=== PATIENT | male | born 1960 | race Caucasian/White ===

== ENCOUNTER 2018-06-23 06:33 | Inpatient (IN) | payer OTHER ==
[2018-06-23] MEDS ORDERED: BENZOIN TINCTURE SWABSTICK TP ONE (07:24)
[2018-06-23] MEDS ORDERED: BUPIVACAINE LIPOSOME/PF (EXPAREL) 266 MG/20 ML VIAL ONE ×2 (07:24→07:56)
[2018-06-23] MEDS ORDERED: THROMBIN (BOVINE) 5,000 UNIT VIAL TP ONE ×2 (07:25→09:05)
[2018-06-23] MEDS ORDERED: fentaNYL CITRATE 250 MCG/5 ML VIAL ONE (07:31)
[2018-06-23] MEDS ORDERED: PROPOFOL 20 ML ONE ×20 (07:31→13:12)
[2018-06-23] MEDS ORDERED: SUCCINYLCHOLINE CHLORIDE 200 MG/10 ML VIAL ONE (07:31)
[2018-06-23] MEDS ORDERED: DEXAMETHASONE SOD PHOSPHATE 4 MG/1 ML VIAL ONE ×2 (07:33→12:31)
[2018-06-23] MEDS ORDERED: ONDANSETRON 4 MG/2 ML VIAL ONE (07:33)
[2018-06-23] MEDS ORDERED: LIDOCAINE HCL/PF 2% SDV 5ML VIAL ONE (07:33)
[2018-06-23] MEDS ORDERED: VANCOMYCIN 1,000 MG VIAL (RESTRICTED TO ID ONLY) ONE (07:40)
[2018-06-23] MEDS ORDERED: VANCOMYCIN 1,000 MG VIAL (RESTRICTED TO ID ONLY) IVPB ONE (07:40)
[2018-06-23] MEDS ORDERED: BUPIVACAINE HCL/PF 0.5% (5MG/ML) 10 ML VIAL ONE (07:56)
[2018-06-23] MEDS ORDERED: MIDAZOLAM HCL 2 MG/2 ML SINGLE DOSE VIAL ONE ×2 (07:57)
[2018-06-23] MEDS ORDERED: MORPHINE 5 MG/10 ML AMP - FOR COMPOUNDING USE ONLY ONE (08:02)
[2018-06-23] MEDS ORDERED: ceFAZolin SODIUM 1 GM VIAL ONE ×3 (08:59→17:51)
[2018-06-23] MEDS ORDERED: ceFAZolin SODIUM 1 GM VIAL IVPB ONE ×2 (09:00→12:25)
[2018-06-23] MEDS ORDERED: morphine SULFATE/Preservative Free 0.5 MG/ML (1cc Syringe) EP ONE (09:00)
[2018-06-23] MEDS ORDERED: GELATIN, ABSORBABLE 12-7MM EACH SPONGE TP ONE (09:05)
[2018-06-23] MEDS ORDERED: HEPARIN NA (PORCINE) 5,000 UNITS/ML 1ML VIAL SQ ONE (09:06)
[2018-06-23] MEDS ORDERED: TRANEXAMIC ACID 1000 MG/10 ML VIAL ONE (09:08)
[2018-06-23] MEDS ORDERED: ROCURONIUM BROMIDE 50 MG/5 ML VIAL ONE ×2 (09:08→09:22)
[2018-06-23] MEDS ORDERED: NEOSTIGMINE METHYLSULFATE 0.5 MG/1 ML - 10 ML MDV ONE (09:54)
[2018-06-23] MEDS ORDERED: ONDANSETRON 4 MG/2 ML VIAL IVPUSH PRN ×2 (12:10→14:25)
[2018-06-23] MEDS ORDERED: oxyCODONE HCL 5 MG TABLET PO PRN ×3 (12:14→12:15)
--- NOTE | 2018-06-23 12:44 | PN ---
Progress Note (short form) - Note Progress Note: 57M s/p L4-S1 posterior decompression, L4-S1 posterior instrumented spinal fusion POD #0. -Admit to ICU post-op. -Pain control: per anaesthesia team; recommend FIELD CLERK. -DVT PPx: - Mechanical only: MEKA's, SCD's. -Incentive spirometry q15min. -PT/OT/Rehab, OOB. -WBAT B/L LE. -q4h B/L LE NV checks. -Post-op antibiotics x 3 doses. -NPO until flatus. -f/u AM labs. -f/u drain output. -d/c Gonsalves catheter when patient ambulating comfortably. -Care per ICU & medical hospitalist team. -Discharge planning: [facility]; call for appointment; . -Will follow. David Nye MD (Orthopaedic Surgery).
--- NOTE | 2018-06-23 12:51 | OP ---
Operative Note - Note: Operative Date: 06/23/18 Pre-Operative Diagnosis: 1. 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 2. L4-S1 spinal stenosis with neurogenic claudication Operation: 1. L4, L5, S1 laminectomies. 2. L4, L5, S1 facetectomies/ osteotomies. 3. Chicas-Lara osteotomies L4-L5. 4. Posterior instrumentation L4-S1. 5. Posterolateral arthrodesis L4-S1. 6. Posterior lumbar instrumented fusion (PLIF) L4-L5, L5-S1. 7. Bone autograft. 8. Bone allograft. 9. Bone marrow aspiration. 10. Stem cell autograft. 11. Intra- operative neural monitoring. 12. Intra-operative biplanar fluoroscopy. 13. Complex wound closure (15cm) Post-Operative Diagnosis: Same as Pre-op Surgeon: David Nye Feather Drying Machine Operator: Robe Nye Anesthesiologist/MINING CONSULTANT: Deisy Hoff Anesthesia: General, Spinal Specimens Removed: L4-L5, L5-S1 discs Estimated Blood Loss (mls): 875 Drains & Tubes with Location: 1 x superficial HemoVac Blood Volume Replaced (mls): 375 (Cell saver) Fluid Volume Replaced (mls): 2,000 (Crystalloid) Operative Report Dictated: Yes
[2018-06-23] MEDS: ACETAMINOPHEN 1000 MG/100 ML VIAL (NON FORMULARY) IVPB SCH ×3 (15:00→21:45)
--- NOTE | 2018-06-23 15:37 | CONSULT ---
Consultation: REQUESTING PROVIDER: Dr. Nye CONSULT REQUEST: We have been asked to medically evaluate this patient for ICU monitoring post-op. HISTORY OF PRESENT ILLNESS: 57 yo male with PMH HTN, HLD, Chronic lower back pain admitted to the ICU s/p L4 -S1 Laminectomy with PLIF. He states his pain is well controlled at this time however he is still quite groggy from anesthesia. He is limited in his ability to answer questioning at this time and dozed off multiple times during the interview. REVIEW OF SYSTEMS: Unable to obtain PHYSICAL EXAMINATION Vital Signs - 24 hr 06/23/18 06/23/18 06/23/18 06:59 07:00 07:02 Temperature 98.1 F 98.1 F Pulse Rate 68 68 Respiratory 20 20 Rate Blood Pressure 148/100 148/100 O2 Sat by Pulse 97 Oximetry (%) 06/23/18 06/23/18 07:30 14:24 Temperature 99 F Pulse Rate 78 103 H Respiratory 20 18 Rate Blood Pressure 141/98 113/57 L O2 Sat by Pulse 100 Oximetry (%) GEN: A&O, no acute distress HEENT: PERRL, constricted pupils, dry mucus membranes NECK: Supple HEART: RRR, no murmurs noted LUNGS: Sonorous breath sounds, otherwise clear to auscultation ABDOMEN: Soft, nontender, obese, hypoactive bowel sounds NEURO: Exam limited, however moving extremities well, no loss of sensation noted Laboratory Results - last 24 hr 06/23/18 06/23/18 06:43 07:54 Blood Type A POSITIVE A POSITIVE Antibody Screen Negative Active Medications Generic Name Dose Route Start Last Admin Trade Name Celestina PRN Reason Stop Dose Admin Acetaminophen 650 mg 06/23/18 12:15 Tylenol - PO Q6HPO JONN Acetaminophen 1,000 mg 06/23/18 14:30 06/23/18 15:00 Ofirmev Injection - IVPB 06/24/18 06:31 1,000 mg Q8H JONN Administration Amlodipine Besylate 5 mg 06/24/18 10:00 Norvasc - PO DAILY JONN Cefazolin Sodium/Dextrose 2 gm 06/23/18 19:00 Ancef 2 Gm Premixed Ivpb - IVPB 06/24/18 03:01 Q8H JONN Lactated Ringer's 1,000 mls @ 125 mls/hr 06/23/18 14:30 Lactated Ringers Solution IV ASDIR [facility] Non-Formulary Medication 40 mg 06/24/18 10:00 Pravastatin Sodium PO DAILY JONN Ondansetron HCl 4 mg 06/23/18 12:10 Zofran Injection IVPUSH Q4H PRN NAUSEA Ondansetron HCl 4 mg 06/23/18 14:25 Zofran Injection IVPUSH Q6H PRN NAUSEA AND/OR VOMITING Oxycodone HCl 10 mg 06/24/18 09:00 Oxycontin - PO BID@0900,2100 [facility] Oxycodone HCl 5 mg 06/24/18 09:00 Roxicodone - PO Q3H PRN PAIN LEVEL 1 - 3 Oxycodone HCl 10 mg 06/24/18 09:00 Roxicodone - PO Q3H PRN PAIN LEVEL 4 - 6 Oxycodone HCl 15 mg 06/24/18 12:19 Roxicodone - PO Q4H PRN PAIN LEVEL 7 - 10 ASSESSMENT/PLAN: 57 yo male with PMH HTN, HLD, Chronic lower back pain admitted to the ICU s/p L4 -S1 Laminectomy with PLIF. POST-OP -Pain control as per surgery/anesthesia, currently states well controlled -Incentive spirometry -D/C tyler when ambulatory -Ancef for 24 hours -Early ambulation -PT eval -Advance diet as tolerated -875 cc blood loss resported, 375 returned with CellSaver -2L crystalloid intraoperatively -LR @ 125 cc/hr until tolerating diet NEURO -Monitor for signs of neurovascular compromise CARDIO -HTN Continue home Norvasc 5 mg PO -HLD Continue home statin PULMONARY -Incentive Spirometry to prevent post-op atelectasis -Pt denies hx of sleep apnea however with likely sleep apnea, recommend sleep screen as outpatient GI -Monitor for bowel sounds, advance diet as tolerated PROPHYLAXIS -Mechanical prophylaxis only as per surgery FEN -LR @ 125 cc/hr -monitor and replete -NPO for now, advance as per surgery DISPOSITION Monitor in the ICU Thank you for this consultative opportunity. Visit type - Emergency Visit Emergency Visit: Yes ED Registration Date: 06/23/18 Care time: The patient presented to the Emergency Department on the above date and was hospitalized for further evaluation of their emergent condition. - New Patient This patient is new to me today: Yes Date on this admission: 06/23/18 - Critical Care Critical Care patient: Yes Total Critical Care Time (in minutes): 36 Critical Care Statement: The care of this patient involved high complexity decision making to prevent further life threatening deterioration of the patient 's condition and/or to evaluate & treat vital organ system(s) failure or risk of failure.
[2018-06-23] MEDS ORDERED: ceFAZolin 2 GRAM PREMIX BAG IVPB SCH (19:00)
[2018-06-23] MEDS: ACETAMINOPHEN 325 MG TABLET (FP) PO SCH (20:13)
[2018-06-23] MEDS: LACTATED RINGERS SOLUTION 1,000 ML IV SCH (20:14)
[2018-06-23] MEDS: CEFAZOLIN 2 GM/D5W 2 GM/50 ML ML IVPB SCH (20:15)
--- NOTE | 2018-06-23 20:35 | PN ---
Physical Exam: SUBJECTIVE: Patient seen and examined at bedside. s/p L4-S1 Laminectomy with PLIF POD #0. Patient reports lumbar pain PS 5/10 and is very hungry. Patient reports having flatulence, no BM, Gonsalves noted draining yellow urine. Patient denies numbness and tingling to extremities. Patient denies fever, chills, cough , SOB, CP, palpitations, AP, N/V/D. PMHx: HTN, HLD, Gastritis, BPH, Chronic Back Pain PSHx: Hernia Repair, L- leg Social Hx: Smoking: Tobacco, quit 18 yrs ago Alcohol: None Drugs: None OBJECTIVE: Vital Signs Period Temp Pulse Resp BP Sys/Stewart Pulse Ox Last 24 Hr 98.0 F-99 F 64-103 14-20 93-148/50-100 95-100 GENERAL: The patient is awake, alert, and fully oriented, in no acute distress. HEAD: Normal with no signs of trauma. EYES: PERRL, extraocular movements intact, sclera anicteric, conjunctiva clear. No ptosis. ENT: Ears normal, nares patent, oropharynx clear without exudates, moist mucous membranes. NECK: Trachea midline, full range of motion, supple. LUNGS: Breath sounds equal, clear to auscultation bilaterally, no wheezes, no crackles, no accessory muscle use. HEART: Regular rate and rhythm, S1, S2 without murmur, rub or gallop. ABDOMEN: Obese, soft, nontender, nondistended, normoactive bowel sounds, no guarding, no rebound, no hepatosplenomegaly, no masses. GENITOURINARY: Gonsalves Catheter draining yellow urine EXTREMITIES: 2+ pulses, warm, well-perfused, no edema. NEUROLOGICAL: Cranial nerves II through XII grossly intact. Normal speech, gait not observed. PSYCH: Normal mood, normal affect. SKIN: Warm, dry, normal turgor, no rashes or lesions noted Laboratory Results - last 24 hr 06/23/18 06/23/18 06:43 07:54 Blood Type A POSITIVE A POSITIVE Antibody Screen Negative Active Medications Generic Name Dose Route Start Last Admin Trade Name Freq PRN Reason Stop Dose Admin Acetaminophen 650 mg 06/23/18 12:15 Tylenol - PO Q6HPO JONN Acetaminophen 1,000 mg 06/23/18 14:30 06/23/18 15:00 Ofirmev Injection - IVPB 06/24/18 06:31 1,000 mg Q8H JONN Administration Amlodipine Besylate 5 mg 06/24/18 10:00 Norvasc - PO DAILY JONN Atorvastatin Calcium 20 mg 06/24/18 22:00 Lipitor - PO HS JONN Diphenhydramine HCl 12.5 mg 06/23/18 16:02 06/23/18 16:10 Benadryl Injection - IVPUSH 25 mg Q4H PRN Administration FOR ITCHING Lactated Ringer's 1,000 mls @ 125 mls/hr 06/23/18 14:30 Lactated Ringers Solution IV ASDIR JONN Cefazolin Sodium/Dextrose 2 gm in 50 mls @ 100 mls/hr 06/23/18 19:00 Ancef 2 Gm Premixed Ivpb - IVPB 06/24/18 03:29 Q8H [facility] Ondansetron HCl 4 mg 06/23/18 12:10 Zofran Injection IVPUSH Q4H PRN NAUSEA Ondansetron HCl 4 mg 06/23/18 14:25 Zofran Injection IVPUSH Q6H PRN NAUSEA AND/OR VOMITING Oxycodone HCl 10 mg 06/24/18 09:00 Oxycontin - PO BID@0900,2100 [facility] Oxycodone HCl 5 mg 06/24/18 09:00 Roxicodone - PO Q3H PRN PAIN LEVEL 1 - 3 Oxycodone HCl 10 mg 06/24/18 09:00 Roxicodone - PO Q3H PRN PAIN LEVEL 4 - 6 Oxycodone HCl 15 mg 06/24/18 12:19 Roxicodone - PO Q4H PRN PAIN LEVEL 7 - 10 ASSESSMENT/PLAN:
[2018-06-24] MEDS: ACETAMINOPHEN 325 MG TABLET (FP) PO SCH ×5 (00:07→23:35)
--- NOTE | 2018-06-24 00:54 | OP ---
DATE OF OPERATION: 06/23/2018 SURGEON: David Nye M.D. AUTHORIZER: Robe Nye M.D. PREOPERATIVE DIAGNOSIS: Lumbar spinal stenosis following failed previous L4-5, L5-S1 diskectomy with associated segmental instability and associated radiculopathy and functional incapacity. POSTOPERATIVE DIAGNOSIS: Lumbar spinal stenosis following failed previous L4-5, L5-S1 diskectomy with associated segmental instability and associated radiculopathy and functional incapacity. OPERATION PERFORMED: 1. Revision laminectomy L4 and L5 with associated undercutting fasciectomy. 2. Diskectomy L4-5, L5-S1. 3. Neurolysis left and right L4, L5 and S1 nerve roots freeing the nerves throughout the entire course in the vertebral canal up to the neural foramina at each level, that is L4, L5 extending down towards S1 ventral foramen. 4. Angiogram arthrodesis with autologous bone graft L4-5, L5-S1. 5. Insertion of interbody cage, L4-5 and L5-S1. 6. Pedicle screw instrumentation L4-5, S1. 7. Postoperative arthrodesis L4-5, S1. 8. Use of biplane fluoroscopy and intraoperative neuromonitoring. 9. Use of bone marrow aspirate concentrate as well as autologous bone graft. 10. Complex wound closure, 4-layer closure. ANESTHESIA: General. ANTIBIOTICS GIVEN: 2 g Kefzol, 1 g vancomycin, 1 g Kefzol given at the end of the procedure. OPERATION DETAILS: Patient was correctly identified, brought in operating room, placed supine on the Armando table, timeout was called. The wound was prepped and draped in the routine manner with Betadine scrub solution, wiped off with alcohol, DuraPrep applied. A window drape applied. All bony points were appropriately padded including the eyes and the table was set at 10 degrees head up (Trendelenburg). The old wound was recognized, this was extended proximally by an inch proximally and a half inch distally, dissection was taken subperiosteally to the tip of the spinous processes, exposing the spinous process on the left and right hand side. The lamina were identified. A lateral fluoroscopic x-ray with a Chantelle placed at L5-S1 verified our levels. It must be noted that this was extremely difficult, because it was completely adherent and stuck down in fibrous tissue as the appropriate approach was virtually impossible to get any instrumentation into the interspace. Accordingly, we resected the spinous process using Leksell rongeur, Kerrison upcuts to debulk the actual lamina and then using a sharp curet running around the border of the inferior aspect of each lamina, the fibrous tissue was broken free off the bone so the bone could be undercut appropriately. We used Leksell rongeurs, Kerrison up-cuts, and we also used osteotomes to implode the bone bed from lateral towards the vertebral canal because the nerve roots were so adherent and stuck downthat one could not gain entry to this area, and we had to start from normal tissue to abnormal tissue, and normal tissue happened to be bone. Once the bone had been broken into the canal it was gently carefully removed off the theca. We used scissors, curets as well as [place] to free each bony element from the actual thecal element. This was performed at both left and right hand side at the L4-5 level. At that point, the nerve roots were identified and each nerve was neurolysed appropriately, as it was stuck and adherent to the foramen. To seat a PLIF cage into each one would simply render the patient with long-term leg pain. We freed the nerves as best we could. They were completely freed both right and left-hand side. The theca was then retracted from the left to the right, and each disk dealt with in exactly the same way and the L4-5 and L5-S1 identified clearly. Epidural bone was using bipolar Bovie. Each disk was opened with a cruciate incision and shaving of each disk was to size 10. Each disk was then subjected to removal of disk material with pituitary rongeurs, serrated curets, as well as the shaver, and eventually we opted for a size 11 Fortilink cages at each level, that is at L4-5 and L5-S1. Prior to the insertion of each cage, the disk was packed with autologous bone. The cages were solidly seated and press fit into place. We chose a size 11 but shaved to size 10. Solid fixation, excellent position of the cage is noted. Once this had been performed, the pedicles of L4-5, S1 were identified using anatomic guidelines and lateral fluoroscopic x-ray as well. Each pedicle screw was drilled with a 4-5 drill bit. Each pedicle screw was then tested with intraoperative neural monitoring and found to be completely safe, that is well above 20 mA for each screw. Once this had been performed, the tulips of each screw were lined up appropriately, and the rods seated within the confines of the tulips, these were 65-mm rods bent to take on the contour of the lordosis. The cap screws were tightened into the tulips, solidly fixing the rods and the appliance torque device utilized to provide final locking. One crosslink applied with bone grafting. The postoperative arthrodesis was then performed. First 60 mL of marrow was harvested from the left posterior ilium. This then brought about aspiration of 60 mL of fluid, spun down for the CD4 cells. The bone graft that was harvested was mixed with this, packed into the intertransverse plane left and right hand side thus completing the instrumented postoperative arthrodesis. The wounds were thoroughly lavaged. The dura was completely intact. Closure muscle, this was a complex wound closure as follows. Muscle 1 Vicryl to close down the space, fascia 1 Vicryl, subcutaneous 1 and 2-0 Vicryl in 2 layers, skin 3-0 Monocryl with Steri-Strips. Drainage 1/8 inch which was inadvertently pulled at the end of the operation . Operation went well with no complications. Extremely difficult due to the stuck down dura and the principle to free each nerve root before each disk height was expanded, otherwise the adherence of the nerve root to the wall of the foramen as well as the vertebral canal would have been appropriately interfered with the relationship with us due to the stretch of the cage and resultant long-term leg pain . This is unlikely to occur. MD ROMERO Sim/[id number]
[2018-06-24] MEDS: CEFAZOLIN 2 GM/D5W 2 GM/50 ML ML IVPB SCH (04:44)
[2018-06-24] MEDS: ACETAMINOPHEN 1000 MG/100 ML VIAL (NON FORMULARY) IVPB SCH (05:35)
[2018-06-24 06:08] LABS: HEMATOCRIT 37.1 % (35.4-49); HEMOGLOBIN 11.6 GM/dL (11.7-16.9); MCH 25.7 pg (25.7-33.7); MCHC 31.3 g/dl (32.0-35.9); MEAN CELL VOLUME 81.9 fl (80-96); MEAN PLT VOLUME 9.7 fl (7.5-11.1); PLATELET COUNT 175 K/MM3 (134-434); RBC 4.52 M/mm3 (4.00-5.60); RDW 13.8 % (11.9-15.9); WHITE BLOOD COUNT 14.5 K/mm3 (4.0-10.0)
[2018-06-24 06:49] LABS: ANION GAP 6 MMOL/L (8-16); BLOOD UREA NITROGEN 18 mg/dL (7-18); CALCIUM 8.3 mg/dL (8.5-10.1); CHLORIDE 106 mmol/L (98-107); CO2 27 mmol/L (21-32); CREATININE 0.9 mg/dL (0.55-1.3); GLUCOSE,RANDOM 103 mg/dL (74-106); POTASSIUM 4.3 mmol/L (3.5-5.1); SODIUM 138 mmol/L (136-145)
--- NOTE | 2018-06-24 08:28 | PN ---
Physical Exam: SUBJECTIVE: Patient seen and examined this AM. He states he is doing well this morning. He states he is having significant pain in his back. Of note he is also requesting to get out of bed and walk around today. Discussed with patient that he can get out of bed today. OBJECTIVE: Vital Signs Period Temp Pulse Resp BP Sys/Stewart Pulse Ox Last 24 Hr 98.0 F-99 F 51-103 12-20 93-122/50-75 95-100 GEN: A&O, no acute distress HEENT: Moist mucus membranes NECK: Supple HEART: RRR, no murmurs noted LUNGS: CTA b/l, no wheezes or rhonchi noted ABDOMEN: Soft, nontender, obese, hypoactive bowel sounds NEURO: Moving all extremities with full strength and ROM and minimal pain, neurosensory in tact Laboratory Results - last 24 hr 06/23/18 06/24/18 06/24/18 07:54 05:30 05:30 WBC 14.5 H RBC 4.52 Hgb 11.6 L Hct 37.1 MCV 81.9 MCH 25.7 MCHC 31.3 L RDW 13.8 Plt Count 175 MPV 9.7 Sodium 138 Potassium 4.3 Chloride 106 Carbon Dioxide 27 Anion Gap 6 L BUN 18 Creatinine 0.9 Creat Clearance w eGFR 87.29 Random Glucose 103 Calcium 8.3 L Blood Type A POSITIVE Active Medications Generic Name Dose Route Start Last Admin Trade Name Freq PRN Reason Stop Dose Admin Acetaminophen 650 mg 06/23/18 12:15 06/24/18 05:24 Tylenol - PO Not Given Q6HPO JONN Amlodipine Besylate 5 mg 06/24/18 10:00 Norvasc - PO DAILY JONN Atorvastatin Calcium 20 mg 06/24/18 22:00 Lipitor - PO HS JONN Diphenhydramine HCl 12.5 mg 06/23/18 16:02 06/24/18 05:00 Benadryl Injection - IVPUSH 12.5 mg Q4H PRN Administration FOR ITCHING Lactated Ringer's 1,000 mls @ 125 mls/hr 06/23/18 14:30 06/23/18 20:14 Lactated Ringers Solution IV 125 mls/hr ASDIR JONN Administration Ondansetron HCl 4 mg 06/23/18 12:10 Zofran Injection IVPUSH Q4H PRN NAUSEA Ondansetron HCl 4 mg 06/23/18 14:25 Zofran Injection IVPUSH Q6H PRN NAUSEA AND/OR VOMITING Oxycodone HCl 10 mg 06/24/18 09:00 Oxycontin - PO BID@0900,2100 JONN Oxycodone HCl 5 mg 06/24/18 09:00 Roxicodone - PO Q3H PRN PAIN LEVEL 1 - 3 Oxycodone HCl 10 mg 06/24/18 09:00 Roxicodone - PO Q3H PRN PAIN LEVEL 4 - 6 Oxycodone HCl 15 mg 06/24/18 12:19 Roxicodone - PO Q4H PRN PAIN LEVEL 7 - 10 ASSESSMENT/PLAN: 57 yo male with PMH HTN, HLD, Chronic lower back pain admitted to the ICU s/p L4 -S1 Laminectomy with PLIF. POST-OP -Pain control as per surgery/anesthesia, currently states well controlled -Incentive spirometry -D/C tyler -Ancef for 24 hours -Early ambulation -PT eval -Advance diet as tolerated -875 cc blood loss resported, 375 returned with CellSaver -2L crystalloid intraoperatively NEURO -Monitor for signs of neurovascular compromise CARDIO -HTN Continue home Norvasc 5 mg PO -HLD Continue home statin PULMONARY -Incentive Spirometry to prevent post-op atelectasis -Pt denies hx of sleep apnea however with likely sleep apnea, recommend sleep screen as outpatient GI -Monitor for bowel sounds, advance diet as tolerated PROPHYLAXIS -Mechanical prophylaxis only as per surgery FEN -none -monitor and replete -Tolerated clears, will advance as tolerated DISPOSITION Stable for transfer to floors Visit type - Emergency Visit Emergency Visit: No - New Patient This patient is new to me today: No - Critical Care Critical Care patient: No
[2018-06-24] MEDS: oxyCODONE HCL 10 MG SUSTAINED ACTING TABLET PO SCH ×2 (08:32→21:35)
[2018-06-24] MEDS ORDERED: oxyCODONE HCL 5 MG TABLET PO PRN ×2 (09:00→12:19)
[2018-06-24] MEDS: amLODIPine BESYLATE 5 MG TABLET (FP) PO SCH (10:15)
[2018-06-24] MEDS: oxyCODONE HCL 5 MG TABLET PO PRN ×2 (10:17→14:45)
[2018-06-24] MEDS: LACTATED RINGERS SOLUTION 1,000 ML IV SCH ×2 (10:31→17:50)
--- NOTE | 2018-06-24 10:42 | PN ---
Progress Note (short form) - Note Progress Note: 57M POD1 s/p L4-5 posterior lumbar interbody fusion under GA-ETT with intrathecal duramorph and exparel TLIPs for post operative pain relief. Pt c/o pain, states that it is controlled at this time. AVSS. Continue current regimen of oral narcotics with tylenol. Duramorph likely worn off or wearing off at this time.
--- NOTE | 2018-06-24 13:42 | PN ---
Teaching Attending Note Name of Resident: Jeovanny Purvis ATTENDING PHYSICIAN STATEMENT I saw and evaluated the patient. I reviewed the resident's note and discussed the case with the resident. I agree with the resident's findings and plan as documented. SUBJECTIVE: Pt seen and examined in the ICU. c/o pain. No nausea or vomiting. No fevers or chills. Wants to get OOB. OBJECTIVE: Vital Signs Period Temp Pulse Resp BP Sys/Stewart Pulse Ox Last 24 Hr 98.0 F-99 F 51-103 12-21 93-123/50-75 95-100 Intake & Output 06/21/18 06/22/18 06/23/18 06/24/18 23:59 23:59 23:59 23:59 Intake Total 3525 2100 Output Total 1875 1600 Balance 1650 500 Weight 107.4 kg Gen: NAD at rest Heart: RRR Lung: decreased breath sounds at the bases Abd: soft, nontender Ext: no edema CBC, BMP 06/24/18 05:30 06/24/18 05:30 Active Medications Acetaminophen (Tylenol -) 650 mg PO Q6HPO [facility] Last Admin: 06/24/18 12:28 Dose: 650 mg Amlodipine Besylate (Norvasc -) 5 mg PO DAILY [facility] Last Admin: 06/24/18 10:15 Dose: 5 mg Atorvastatin Calcium (Lipitor -) 20 mg PO [facility] Diphenhydramine HCl (Benadryl Injection -) 12.5 mg IVPUSH Q4H PRN PRN Reason: FOR ITCHING Last Admin: 06/24/18 12:36 Dose: 12.5 mg Lactated Ringer's (Lactated Ringers Solution) 1,000 mls @ 125 mls/hr IV ASDIR [facility] Last Admin: 06/24/18 10:31 Dose: 125 mls/hr Ondansetron HCl (Zofran Injection) 4 mg IVPUSH Q4H PRN PRN Reason: NAUSEA Ondansetron HCl (Zofran Injection) 4 mg IVPUSH Q6H PRN PRN Reason: NAUSEA AND/OR VOMITING Oxycodone HCl (Oxycontin -) 10 mg PO BID@0900,2100 [facility] Last Admin: 06/24/18 08:32 Dose: 10 mg Oxycodone HCl (Roxicodone -) 5 mg PO Q3H PRN PRN Reason: PAIN LEVEL 1 - 3 Oxycodone HCl (Roxicodone -) 10 mg PO Q3H PRN PRN Reason: PAIN LEVEL 4 - 6 Last Admin: 06/24/18 10:17 Dose: 10 mg Oxycodone HCl (Roxicodone -) 15 mg PO Q4H PRN PRN Reason: PAIN LEVEL 7 - 10 ASSESSMENT AND PLAN: Lumbar Spinal Stenosis with Radiculopathy and Claudication s/p L4-S1 Laminectomies/Posterior Instrumentation/PLIF HTN Hyperlipidemia - pain control - incentive spirometry - bowel regimen - rehab/PT - DVT prophylaxis - can monitor on floor
--- NOTE | 2018-06-24 16:57 | PN ---
Progress Note (short form) - Note Progress Note: POD 1, s/p L4, L5, S1 laminectomies, (PLIF) L4-L5, L5-S1 CTSP by RN/primary team for saturated dressing. Per Rn, pts dressing has been oozing throughout the day requiring multiple bed/ gown changes. Pt laying in bed in nad, reports pain controlled. Denies dizziness/ lightheadedness. Dressing saturated completely (serosanguinous drainage), removed, incision intact, no drainage expressed. Proximal ostium with staple intact also dry (HV removed incidentally). No erythema. Pt noted to have two superficial skin tears (approx 2x2cm and 1x1cm) at border of prior Iodoform dressing. No erythema or drainage. Incision covered with 4x4 gauze/tegaderm. Recommend Xerform to skin tears d/w attending Dr Robe Nye
[2018-06-24] MEDS: BACITRACIN 15 GM TUBE TOPICAL OINTMENT TP SCH (17:52)
--- NOTE | 2018-06-24 20:21 | PN ---
Physical Exam: SUBJECTIVE: Patient seen and examined -s/p Lumbar spine laminectomies -pt with surgical site ooze throughout the course of the day -site evaluated by surgical PA -OOB to chair -flatus passed, diet advanced OBJECTIVE: Vital Signs Period Temp Pulse Resp BP Sys/Stewart Pulse Ox Last 24 Hr 98.1 F-98.7 F 51-83 12-21 101-129/59-75 96-100 GENERAL: The patient is awake, alert, and fully oriented, in no acute distress. HEAD: Normal with no signs of trauma. EYES: PERRL, sclera anicteric, conjunctiva clear. ENT: nares patent, oropharynx clear without exudates, moist mucous membranes. NECK: Trachea midline, full range of motion, supple. LUNGS: Breath sounds equal, clear to auscultation bilaterally, no wheezes, no crackles, no accessory muscle use. HEART: Regular rate and rhythm, S1, S2 without murmur, rub or gallop. ABDOMEN: Soft, nontender, nondistended, normoactive bowel sounds, no guarding, EXTREMITIES: 2+ pulses, warm, well-perfused, no edema. NEUROLOGICAL: Cranial nerves II through XII grossly intact. Normal speech, gait not observed. PSYCH: Normal mood, normal affect. SKIN: Warm, dry, normal turgor, no rashes or lesions noted. Lumbar dressing mostly soaked. Laboratory Results - last 24 hr 06/24/18 06/24/18 05:30 05:30 WBC 14.5 H RBC 4.52 Hgb 11.6 L Hct 37.1 MCV 81.9 MCH 25.7 MCHC 31.3 L RDW 13.8 Plt Count 175 MPV 9.7 Sodium 138 Potassium 4.3 Chloride 106 Carbon Dioxide 27 Anion Gap 6 L BUN 18 Creatinine 0.9 Creat Clearance w eGFR 87.29 Random Glucose 103 Calcium 8.3 L Active Medications Generic Name Dose Route Start Last Admin Trade Name Freq PRN Reason Stop Dose Admin Acetaminophen 650 mg 06/23/18 12:15 06/24/18 17:50 Tylenol - PO 650 mg Q6HPO JONN Administration Amlodipine Besylate 5 mg 06/24/18 10:00 06/24/18 10:15 Norvasc - PO 5 mg DAILY JONN Administration Atorvastatin Calcium 20 mg 06/24/18 22:00 Lipitor - PO HS JONN Bacitracin 1 applic 06/24/18 16:45 06/24/18 17:52 Bacitracin - TP 1 applic DAILY JONN Administration Diphenhydramine HCl 12.5 mg 06/23/18 16:02 06/24/18 12:36 Benadryl Injection - IVPUSH 12.5 mg Q4H PRN Administration FOR ITCHING Lactated Ringer's 1,000 mls @ 125 mls/hr 06/23/18 14:30 06/24/18 17:50 Lactated Ringers Solution IV 125 mls/hr ASDIR JONN Administration Ondansetron HCl 4 mg 06/23/18 12:10 Zofran Injection IVPUSH Q4H PRN NAUSEA Ondansetron HCl 4 mg 06/23/18 14:25 Zofran Injection IVPUSH Q6H PRN NAUSEA AND/OR VOMITING Oxycodone HCl 10 mg 06/24/18 09:00 06/24/18 08:32 Oxycontin - PO 10 mg BID@0900,2100 JONN Administration Oxycodone HCl 5 mg 06/24/18 09:00 Roxicodone - PO Q3H PRN PAIN LEVEL 1 - 3 Oxycodone HCl 10 mg 06/24/18 09:00 06/24/18 14:45 Roxicodone - PO 10 mg Q3H PRN Administration PAIN LEVEL 4 - 6 Oxycodone HCl 15 mg 06/24/18 12:19 Roxicodone - PO Q4H PRN PAIN LEVEL 7 - 10 ASSESSMENT/PLAN: 57 year old M with L4-L5, 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 Problem List - Problems (1) S/P lumbar laminectomy Assessment/Plan: pain control with oxycodone, oxycontin and APAP OOB to chair Ambulate PT daily can transfer to same day surgery center floor tomorrow Code(s): Z98.890 - OTHER SPECIFIED POSTPROCEDURAL STATES (2) HTN (hypertension) Assessment/Plan: norvasc 5mg daily cardiac diet Code(s): I10 - ESSENTIAL (PRIMARY) HYPERTENSION (3) Hyperlipidemia Assessment/Plan: continue lipitor 20mg qhs cardiac diet Code(s): E78.5 - HYPERLIPIDEMIA, UNSPECIFIED (4) Prophylactic measure Assessment/Plan: bowel regimen with senna and colace IC Code(s): Z29.9 - ENCOUNTER FOR PROPHYLACTIC MEASURES, UNSPECIFIED Visit type - Emergency Visit Emergency Visit: No - New Patient This patient is new to me today: Yes Date on this admission: 06/24/18 - Critical Care Critical Care patient: Yes Total Critical Care Time (in minutes): 45 Critical Care Statement: The care of this patient involved high complexity decision making to prevent further life threatening deterioration of the patient 's condition and/or to evaluate & treat vital organ system(s) failure or risk of failure. - Discharge Referral Referred to [facility] Med P.C.: No
[2018-06-24] MEDS ORDERED: SENNOSIDES 8.6MG TABLET (FP) PO PRN (20:26)
[2018-06-24] MEDS: ATORVASTATIN CA 20 MG TABLET (FP) PO SCH (21:35)
[2018-06-24] MEDS: POLYETHYLENE GLYCOL 3350 119 GM BTL PO PRN (21:36)
[2018-06-24] MEDS ORDERED: PT OWN MED DRAWER 7, Y5N ONE (21:47)
[2018-06-25] MEDS: oxyCODONE HCL 5 MG TABLET PO PRN (05:24)
[2018-06-25] MEDS: DOCUSATE SODIUM 100 MG CAPSULE (FP) PO PRN ×2 (05:25→17:01)
[2018-06-25] MEDS: ACETAMINOPHEN 325 MG TABLET (FP) PO SCH ×3 (05:25→17:00)
[2018-06-25 06:36] LABS: HEMATOCRIT 34.5 % (35.4-49); MCHC 31.8 g/dl (32.0-35.9); MEAN CELL VOLUME 81.9 fl (80-96); MEAN PLT VOLUME 9.7 fl (7.5-11.1); PLATELET COUNT 153 K/MM3 (134-434); RBC 4.21 M/mm3 (4.00-5.60); WHITE BLOOD COUNT 12.9 K/mm3 (4.0-10.0)
[2018-06-25 07:06] LABS: ALBUMIN 2.9 g/dl (3.4-5.0); ALK PHOS 45 U/L (45-117); ANION GAP 3 MMOL/L (8-16); BILIRUBIN,TOTAL 0.3 mg/dL (0.2-1); BLOOD UREA NITROGEN 15 mg/dL (7-18); CALCIUM 8.5 mg/dL (8.5-10.1); CHLORIDE 105 mmol/L (98-107); CO2 33 mmol/L (21-32); CREATININE 0.7 mg/dL (0.55-1.3); GLUCOSE,RANDOM 99 mg/dL (74-106); POTASSIUM 3.9 mmol/L (3.5-5.1); SGOT/AST 59 U/L (15-37); SGPT/ALT 25 U/L (13-61); SODIUM 140 mmol/L (136-145); TOT PROT 5.4 g/dl (6.4-8.2)
--- NOTE | 2018-06-25 07:55 | PN ---
Physical Exam: SUBJECTIVE: Patient seen and examined this AM. He is still having some pain today but states that it is controlled. He denies any bowel movements in the last 4 days, however has had flatus and has tolerated his diet well. OBJECTIVE: Vital Signs Period Temp Pulse Resp BP Sys/Stewart Pulse Ox Last 24 Hr 98.1 F-98.9 F 63-86 12-26 108-129/57-75 96-100 GEN: A&O, no acute distress HEENT: Moist mucus membranes NECK: Supple HEART: RRR, no murmurs noted LUNGS: CTA b/l, no wheezes or rhonchi noted ABDOMEN: Soft, nontender, obese, hypoactive bowel sounds BACK: Dressing clean and in tact NEURO: Moving all extremities with full strength and ROM and minimal pain, neurosensory in tact Laboratory Results - last 24 hr 06/25/18 06/25/18 05:30 05:30 WBC 12.9 H RBC 4.21 Hgb 11.0 L Hct 34.5 L MCV 81.9 MCH 26.0 MCHC 31.8 L RDW 14.0 Plt Count 153 MPV 9.7 Sodium 140 Potassium 3.9 Chloride 105 Carbon Dioxide 33 H Anion Gap 3 L BUN 15 Creatinine 0.7 Creat Clearance w eGFR 116.66 Random Glucose 99 Calcium 8.5 Total Bilirubin 0.3 AST 59 H ALT 25 Alkaline Phosphatase 45 Total Protein 5.4 L Albumin 2.9 L Active Medications Generic Name Dose Route Start Last Admin Trade Name Freq PRN Reason Stop Dose Admin Acetaminophen 650 mg 06/23/18 12:15 06/25/18 05:25 Tylenol - PO 650 mg Q6HPO JONN Administration Amlodipine Besylate 5 mg 06/24/18 10:00 06/24/18 10:15 Norvasc - PO 5 mg DAILY JONN Administration Atorvastatin Calcium 20 mg 06/24/18 22:00 06/24/18 21:35 Lipitor - PO 20 mg HS JONN Administration Bacitracin 1 applic 06/24/18 16:45 06/24/18 17:52 Bacitracin - TP 1 applic DAILY JONN Administration Diphenhydramine HCl 12.5 mg 06/23/18 16:02 06/24/18 12:36 Benadryl Injection - IVPUSH 12.5 mg Q4H PRN Administration FOR ITCHING Docusate Sodium 100 mg 06/24/18 20:26 06/25/18 05:25 Colace - PO 100 mg Q8H PRN Administration CONSTIPATION Ondansetron HCl 4 mg 06/23/18 12:10 Zofran Injection IVPUSH Q4H PRN NAUSEA Ondansetron HCl 4 mg 06/23/18 14:25 Zofran Injection IVPUSH Q6H PRN NAUSEA AND/OR VOMITING Oxycodone HCl 10 mg 06/24/18 09:00 06/24/18 21:35 Oxycontin - PO 10 mg BID@0900,2100 JONN Administration Oxycodone HCl 5 mg 06/24/18 09:00 Roxicodone - PO Q3H PRN PAIN LEVEL 1 - 3 Oxycodone HCl 10 mg 06/24/18 09:00 06/25/18 05:24 Roxicodone - PO 10 mg Q3H PRN Administration PAIN LEVEL 4 - 6 Oxycodone HCl 15 mg 06/24/18 12:19 Roxicodone - PO Q4H PRN PAIN LEVEL 7 - 10 Polyethylene Glycol 17 gm 06/24/18 20:26 06/24/18 21:36 Miralax (For Daily Use) - PO 17 grams DAILY PRN Administration CONSTIPATION Senna 2 tab 06/24/18 20:26 Senna - PO HS PRN CONSTIPATION ASSESSMENT/PLAN: 57 yo male with PMH HTN, HLD, Chronic lower back pain admitted to the ICU s/p L4 -S1 Laminectomy with PLIF. POST-OP -Pain control as per surgery/anesthesia, currently states well controlled -Incentive spirometry -Early ambulation -Continue working with PT -Tolerating diet -875 cc blood loss resported, 375 returned with CellSaver -Stable for transfer to floors vs d/c pending surgery recommendation NEURO -No neurological deficits or concerns post op CARDIO -HTN Continue home Norvasc 5 mg PO -HLD Continue home statin PULMONARY -Incentive Spirometry to prevent post-op atelectasis -Pt denies hx of sleep apnea however with likely sleep apnea, recommend sleep screen as outpatient GI -Tolerating diet well PROPHYLAXIS -Mechanical prophylaxis only as per surgery FEN -none -monitor and replete -Na controlled diet DISPOSITION Stable for transfer to floors Visit type - Emergency Visit Emergency Visit: No - New Patient This patient is new to me today: No - Critical Care Critical Care patient: No
[2018-06-25] MEDS: oxyCODONE HCL 10 MG SUSTAINED ACTING TABLET PO SCH ×2 (09:33→21:29)
[2018-06-25] MEDS: BACITRACIN 15 GM TUBE TOPICAL OINTMENT TP SCH (09:34)
[2018-06-25] MEDS: amLODIPine BESYLATE 5 MG TABLET (FP) PO SCH (09:35)
[2018-06-25] MEDS: POLYETHYLENE GLYCOL 3350 119 GM BTL PO PRN ×2 (09:36→21:35)
--- NOTE | 2018-06-25 10:20 | PN ---
Physical Exam: SUBJECTIVE: Patient seen and examined. denies shortness of breath, denies chest pain. OBJECTIVE: equipment monitor phototypesetting: nsr 83, 130/74, tolerating room air with stable oxygen saturations Vital Signs Period Temp Pulse Resp BP Sys/Stewart Pulse Ox Last 24 Hr 98.1 F-98.9 F 65-86 14-26 108-131/57-75 96-96 GENERAL: The patient is awake, alert, and fully oriented, in no acute distress. sitting in chair/pain controlled. HEAD: Normal with no signs of trauma. EYES: PERRL, sclera anicteric, conjunctiva clear. ENT: nares patent, oropharynx clear without exudates, moist mucous membranes. NECK: Trachea midline, full range of motion, supple. LUNGS: Breath sounds equal, clear to auscultation bilaterally, no wheezes, no crackles, no accessory muscle use. HEART: Regular rate and rhythm, ABDOMEN: Soft, nontender, nondistended, normoactive bowel sounds, no guarding, EXTREMITIES: 2+ pulses, warm, well-perfused, no edema. NEUROLOGICAL: Normal speech, gait not observed. PSYCH: Normal mood, normal affect. SKIN: surgical dressing dry, minimal sero sang drainage. Laboratory Results - last 24 hr 06/25/18 06/25/18 05:30 05:30 WBC 12.9 H RBC 4.21 Hgb 11.0 L Hct 34.5 L MCV 81.9 MCH 26.0 MCHC 31.8 L RDW 14.0 Plt Count 153 MPV 9.7 Sodium 140 Potassium 3.9 Chloride 105 Carbon Dioxide 33 H Anion Gap 3 L BUN 15 Creatinine 0.7 Creat Clearance w eGFR 116.66 Random Glucose 99 Calcium 8.5 Total Bilirubin 0.3 AST 59 H ALT 25 Alkaline Phosphatase 45 Total Protein 5.4 L Albumin 2.9 L Active Medications Generic Name Dose Route Start Last Admin Trade Name Freq PRN Reason Stop Dose Admin Acetaminophen 650 mg 06/23/18 12:15 06/25/18 05:25 Tylenol - PO 650 mg Q6HPO JONN Administration Amlodipine Besylate 5 mg 06/24/18 10:00 06/25/18 09:35 Norvasc - PO 5 mg DAILY JONN Administration Atorvastatin Calcium 20 mg 06/24/18 22:00 06/24/18 21:35 Lipitor - PO 20 mg HS JONN Administration Bacitracin 1 applic 06/24/18 16:45 06/25/18 09:34 Bacitracin - TP 1 applic DAILY JONN Administration Diphenhydramine HCl 12.5 mg 06/23/18 16:02 06/24/18 12:36 Benadryl Injection - IVPUSH 12.5 mg Q4H PRN Administration FOR ITCHING Docusate Sodium 100 mg 06/24/18 20:26 06/25/18 05:25 Colace - PO 100 mg Q8H PRN Administration CONSTIPATION Ondansetron HCl 4 mg 06/23/18 12:10 Zofran Injection IVPUSH Q4H PRN NAUSEA Ondansetron HCl 4 mg 06/23/18 14:25 Zofran Injection IVPUSH Q6H PRN NAUSEA AND/OR VOMITING Oxycodone HCl 10 mg 06/24/18 09:00 06/25/18 09:33 Oxycontin - PO 10 mg BID@0900,2100 JONN Administration Oxycodone HCl 5 mg 06/24/18 09:00 Roxicodone - PO Q3H PRN PAIN LEVEL 1 - 3 Oxycodone HCl 10 mg 06/24/18 09:00 06/25/18 05:24 Roxicodone - PO 10 mg Q3H PRN Administration PAIN LEVEL 4 - 6 Oxycodone HCl 15 mg 06/24/18 12:19 Roxicodone - PO Q4H PRN PAIN LEVEL 7 - 10 Polyethylene Glycol 17 gm 06/24/18 20:26 06/25/18 09:36 Miralax (For Daily Use) - PO 17 grams DAILY PRN Administration CONSTIPATION Senna 2 tab 06/24/18 20:26 Senna - PO HS PRN CONSTIPATION ASSESSMENT/PLAN: Patient is a 57 year old male L4-L5, 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 Nye. His other past medical history includes hypertension, hyperlipidemia, gastritis, BPH, chronic back pain. Back surgery Monitor wound, change dressing per surgery physical therapy pain management, bowel regimen, incentive spirometer Hypertension. On Norvasc 5mg daily Hyperlipidemia On statin therapy fen tolerating PO monitor daily electrolytes diet per surgery prophy scds physical therapy Visit type - Emergency Visit Emergency Visit: Yes ED Registration Date: 06/23/18 Care time: The patient presented to the Emergency Department on the above date and was hospitalized for further evaluation of their emergent condition. - New Patient This patient is new to me today: No - Critical Care Critical Care patient: No - Discharge Referral Referred to [facility] Med [facility] No
[2018-06-25 12:25] VITALS: BMI 36.9
--- NOTE | 2018-06-25 12:42 | PN ---
Teaching Attending Note Name of Resident: Jeovanny Purvis ATTENDING PHYSICIAN STATEMENT I saw and evaluated the patient. I reviewed the resident's note and discussed the case with the resident. I agree with the resident's findings and plan as documented. SUBJECTIVE: Pt seen and examined in the ICU. Still with some pain. No fevers or chills. No nausea. Tolerating PO. Ambulating with physical therapy. OBJECTIVE: Vital Signs Period Temp Pulse Resp BP Sys/Stewart Pulse Ox Last 24 Hr 98.1 F-98.9 F 65-86 14-26 108-131/54-74 96-97 Intake & Output 06/22/18 06/23/18 06/24/18 06/25/18 23:59 23:59 23:59 23:59 Intake Total 3525 5675 Output Total 1875 3000 Balance 1650 2675 Weight 107.4 kg 107.048 kg Gen: NAD at rest Heart: RRR Lung: decreased breath sounds at the bases Abd: soft, nontender Ext: no edema CBC, BMP 06/25/18 05:30 06/25/18 05:30 Active Medications Acetaminophen (Tylenol -) 650 mg PO Q6HPO [facility] Last Admin: 06/25/18 11:54 Dose: 650 mg Amlodipine Besylate (Norvasc -) 5 mg PO DAILY [facility] Last Admin: 06/25/18 09:35 Dose: 5 mg Atorvastatin Calcium (Lipitor -) 20 mg PO HS [facility] Last Admin: 06/24/18 21:35 Dose: 20 mg Bacitracin (Bacitracin -) 1 applic TP DAILY [facility] Last Admin: 06/25/18 09:34 Dose: 1 applic Diphenhydramine HCl (Benadryl Injection -) 12.5 mg IVPUSH Q4H PRN PRN Reason: FOR ITCHING Last Admin: 06/24/18 12:36 Dose: 12.5 mg Docusate Sodium (Colace -) 100 mg PO Q8H PRN PRN Reason: CONSTIPATION Last Admin: 06/25/18 05:25 Dose: 100 mg Ondansetron HCl (Zofran Injection) 4 mg IVPUSH Q4H PRN PRN Reason: NAUSEA Ondansetron HCl (Zofran Injection) 4 mg IVPUSH Q6H PRN PRN Reason: NAUSEA AND/OR VOMITING Oxycodone HCl (Oxycontin -) 10 mg PO BID@0900,2100 JONN Last Admin: 06/25/18 09:33 Dose: 10 mg Oxycodone HCl (Roxicodone -) 5 mg PO Q3H PRN PRN Reason: PAIN LEVEL 1 - 3 Oxycodone HCl (Roxicodone -) 10 mg PO Q3H PRN PRN Reason: PAIN LEVEL 4 - 6 Last Admin: 06/25/18 05:24 Dose: 10 mg Oxycodone HCl (Roxicodone -) 15 mg PO Q4H PRN PRN Reason: PAIN LEVEL 7 - 10 Polyethylene Glycol (Miralax (For Daily Use) -) 17 gm PO DAILY PRN PRN Reason: CONSTIPATION Last Admin: 06/25/18 09:36 Dose: 17 grams Senna (Senna -) 2 tab PO HS PRN PRN Reason: CONSTIPATION ASSESSMENT AND PLAN: Lumbar Spinal Stenosis with Radiculopathy and Claudication s/p L4-S1 Laminectomies/Posterior Instrumentation/PLIF HTN Hyperlipidemia - pain control - incentive spirometry - bowel regimen - rehab/PT - DVT prophylaxis - can monitor on floor
--- NOTE | 2018-06-25 16:34 | PATH ---
Surgical Pathology Report Patient Name: FRANK ISAACS Med. Rec. 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 Specimen(s) Received L4-S1 DISC Clinical History Lumbar spinal stenosis Final Diagnosis L4-S1 DISC, LUMBAR INTERBODY FUSION: BENIGN INTERVERTEBRAL DISC TISSUE AND BONE. Electronically Signed Colleen Shi M.D. Gross Description Received in formalin labeled "L4-S1 disc," is a 4.5 x 3.5 x 0.8 cm aggregate of fernandes fragments of fibrocartilaginous tissue. A hospital insurance representative portion is submitted in one cassette. /06/24/2018 saudi06/24/2018
[2018-06-25] MEDS: ATORVASTATIN CA 20 MG TABLET (FP) PO SCH (21:31)
[2018-06-26] MEDS: ACETAMINOPHEN 325 MG TABLET (FP) PO SCH ×4 (00:42→17:09)
[2018-06-26] MEDS: oxyCODONE HCL 10 MG SUSTAINED ACTING TABLET PO SCH ×2 (09:00→21:07)
[2018-06-26] MEDS: amLODIPine BESYLATE 5 MG TABLET (FP) PO SCH (10:35)
[2018-06-26] MEDS: BACITRACIN 15 GM TUBE TOPICAL OINTMENT TP SCH (10:35)
[2018-06-26] MEDS: DOCUSATE SODIUM 100 MG CAPSULE (FP) PO PRN (10:35)
[2018-06-26] MEDS: POLYETHYLENE GLYCOL 3350 119 GM BTL PO PRN (10:36)
[2018-06-26] MEDS ORDERED: BISACODYL 5 MG TABLET.DR (FP) PO ONE (12:10)
[2018-06-26] MEDS ORDERED: oxyCODONE HCL 5 MG TABLET PO PRN ×3 (12:35)
[2018-06-26] MEDS ORDERED: ONDANSETRON 4 MG/2 ML VIAL IVPUSH PRN (12:35)
--- NOTE | 2018-06-26 12:47 | PN ---
Teaching Attending Note Name of Resident: Jeovanny Purvis ATTENDING PHYSICIAN STATEMENT I saw and evaluated the patient. I reviewed the resident's note and discussed the case with the resident. I agree with the resident's findings and plan as documented. SUBJECTIVE: Pt seen and examined in the ICU. Still some pain. Ambulating, tolerating PO. OBJECTIVE: Vital Signs Period Temp Pulse Resp BP Sys/Stewart Pulse Ox Last 24 Hr 98.5 F-99.9 F 67-90 16-18 113-138/54-81 97-97 Intake & Output 06/23/18 06/24/18 06/25/18 06/26/18 23:59 23:59 23:59 23:59 Intake Total 3525 5675 240 Output Total 1875 3000 1400 Balance 1650 2675 -1160 Weight 107.4 kg 107.048 kg Gen: NAD at rest Heart: RRR Lung: decreased breath sounds at the bases Abd: soft, nontender Ext: no edema CBC, BMP 06/25/18 05:30 06/25/18 05:30 Active Medications Acetaminophen (Tylenol -) 650 mg PO Q6HPO JONN Amlodipine Besylate (Norvasc -) 5 mg PO DAILY JONN Atorvastatin Calcium (Lipitor -) 20 mg PO HS JONN Bacitracin (Bacitracin -) 1 applic TP DAILY JONN Last Admin: 06/26/18 10:35 Dose: 1 applic Diphenhydramine HCl (Benadryl Injection -) 12.5 mg IVPUSH Q4H PRN PRN Reason: FOR ITCHING Docusate Sodium (Colace -) 100 mg PO Q8H PRN PRN Reason: CONSTIPATION Last Admin: 06/26/18 10:35 Dose: 100 mg Ondansetron HCl (Zofran Injection) 4 mg IVPUSH Q6H PRN PRN Reason: NAUSEA AND/OR VOMITING Oxycodone HCl (Roxicodone -) 5 mg PO Q3H PRN PRN Reason: PAIN LEVEL 1 - 3 Oxycodone HCl (Roxicodone -) 10 mg PO Q3H PRN PRN Reason: PAIN LEVEL 4 - 6 Oxycodone HCl (Roxicodone -) 15 mg PO Q4H PRN PRN Reason: PAIN LEVEL 7 - 10 Oxycodone HCl (Oxycontin -) 10 mg PO BID@0900,2100 JONN Polyethylene Glycol (Miralax (For Daily Use) -) 17 gm PO DAILY PRN PRN Reason: CONSTIPATION Last Admin: 06/26/18 10:36 Dose: 17 grams Senna (Senna -) 2 tab PO HS PRN PRN Reason: CONSTIPATION ASSESSMENT AND PLAN: Lumbar Spinal Stenosis with Radiculopathy and Claudication s/p L4-S1 Laminectomies/Posterior Instrumentation/PLIF HTN Hyperlipidemia - pain control - incentive spirometry - bowel regimen - rehab/PT - DVT prophylaxis - d/c planning
--- NOTE | 2018-06-26 12:56 | PN ---
Physical Exam: SUBJECTIVE: Patient seen and examined this AM. Complaining of back pain and no bowel movement since surgery. Having flatus and tolerating diet well. OBJECTIVE: Vital Signs Period Temp Pulse Resp BP Sys/Stewart Pulse Ox Last 24 Hr 98.5 F-99.9 F 67-90 16-18 113-138/54-81 97-97 GEN: A&O, no acute distress HEENT: Moist mucus membranes NECK: Supple HEART: RRR, no murmurs noted LUNGS: CTA b/l, no wheezes or rhonchi noted ABDOMEN: Soft, nontender, obese, hypoactive bowel sounds BACK: Dressing clean and in tact NEURO: Moving all extremities with full strength and ROM and minimal pain, neurosensory in tact Active Medications Generic Name Dose Route Start Last Admin Trade Name Freq PRN Reason Stop Dose Admin Acetaminophen 650 mg 06/26/18 18:00 Tylenol - PO Q6HPO [facility] Amlodipine Besylate 5 mg 06/27/18 10:00 Norvasc - PO DAILY [facility] Atorvastatin Calcium 20 mg 06/26/18 22:00 Lipitor - PO HS JONN Bacitracin 1 applic 06/24/18 16:45 06/26/18 10:35 Bacitracin - TP 1 applic DAILY [facility] Administration Diphenhydramine HCl 12.5 mg 06/26/18 12:35 Benadryl Injection - IVPUSH Q4H PRN FOR ITCHING Docusate Sodium 100 mg 06/24/18 20:26 06/26/18 10:35 Colace - PO 100 mg Q8H PRN Administration CONSTIPATION Ondansetron HCl 4 mg 06/26/18 12:35 Zofran Injection IVPUSH Q6H PRN NAUSEA AND/OR VOMITING Oxycodone HCl 5 mg 06/26/18 12:35 Roxicodone - PO Q3H PRN PAIN LEVEL 1 - 3 Oxycodone HCl 10 mg 06/26/18 12:35 Roxicodone - PO Q3H PRN PAIN LEVEL 4 - 6 Oxycodone HCl 15 mg 06/26/18 12:35 Roxicodone - PO Q4H PRN PAIN LEVEL 7 - 10 Oxycodone HCl 10 mg 06/26/18 21:00 Oxycontin - PO BID@0900,2100 [facility] Polyethylene Glycol 17 gm 06/24/18 20:26 06/26/18 10:36 Miralax (For Daily Use) - PO 17 grams DAILY PRN Administration CONSTIPATION Senna 2 tab 06/24/18 20:26 Senna - PO HS PRN CONSTIPATION ASSESSMENT/PLAN: 57 yo male with PMH HTN, HLD, Chronic lower back pain admitted to the ICU s/p L4 -S1 Laminectomy with PLIF. POST-OP -Pain control as per surgery/anesthesia, currently states well controlled -Incentive spirometry -Early ambulation -Continue working with PT -Tolerating diet -875 cc blood loss resported, 375 returned with CellSaver -Stable for transfer to floors vs d/c pending surgery recommendation -will require PT on discharge NEURO -No neurological deficits or concerns post op CARDIO -HTN Continue home Norvasc 5 mg PO -HLD Continue home statin PULMONARY -Incentive Spirometry to prevent post-op atelectasis -Pt denies hx of sleep apnea however with likely sleep apnea, recommend sleep screen as outpatient GI -Tolerating diet well PROPHYLAXIS -Mechanical prophylaxis only as per surgery FEN -none -monitor and replete -Na controlled diet DISPOSITION Stable for transfer to floors or discharge home Visit type - Emergency Visit Emergency Visit: Yes ED Registration Date: 06/23/18 Care time: The patient presented to the Emergency Department on the above date and was hospitalized for further evaluation of their emergent condition. - New Patient This patient is new to me today: No - Critical Care Critical Care patient: No
[2018-06-26] MEDS ORDERED: BISACODYL 10 MG SUPP.RECT PR ONE (16:15)
--- NOTE | 2018-06-26 20:11 | PN ---
Physical Exam: SUBJECTIVE: Patient seen and examined at the bedside c/o of constipation. OBJECTIVE: on a bowel regimen, however, remains constipated x 4 days. no nausea or vomiting. will add dulcolax po and WA discharge tomorrow Vital Signs Period Temp Pulse Resp BP Sys/Stewart Pulse Ox Last 24 Hr 98.5 F-99.9 F 67-90 18-20 116-138/64-89 97-97 GENERAL: The patient is awake, alert, and fully oriented, in no acute distress. HEAD: Normal with no signs of trauma. EYES: PERRL, sclera anicteric, conjunctiva clear. ENT: nares patent, oropharynx clear without exudates, moist mucous membranes. NECK: Trachea midline, full range of motion, supple. LUNGS: Breath sounds equal, clear to auscultation bilaterally, no wheezes, no crackles, no accessory muscle use. HEART: Regular rate and rhythm, ABDOMEN: Soft, nontender, nondistended, normoactive bowel sounds, no guarding, EXTREMITIES: 2+ pulses, warm, well-perfused, no edema. NEUROLOGICAL: Normal speech, gait not observed. PSYCH: Normal mood, normal affect. SKIN: surgical dressing dry, minimal sero sang drainage. Active Medications Generic Name Dose Route Start Last Admin Trade Name Freq PRN Reason Stop Dose Admin Acetaminophen 650 mg 06/26/18 18:00 06/26/18 17:09 Tylenol - PO Not Given Q6HPO JONN Amlodipine Besylate 5 mg 06/27/18 10:00 Norvasc - PO DAILY JONN Atorvastatin Calcium 20 mg 06/26/18 22:00 Lipitor - PO HS JONN Bacitracin 1 applic 06/24/18 16:45 06/26/18 10:35 Bacitracin - TP 1 applic DAILY JONN Administration Diphenhydramine HCl 12.5 mg 06/26/18 12:35 Benadryl Injection - IVPUSH Q4H PRN FOR ITCHING Docusate Sodium 100 mg 06/24/18 20:26 06/26/18 10:35 Colace - PO 100 mg Q8H PRN Administration CONSTIPATION Ondansetron HCl 4 mg 06/26/18 12:35 Zofran Injection IVPUSH Q6H PRN NAUSEA AND/OR VOMITING Oxycodone HCl 5 mg 06/26/18 12:35 Roxicodone - PO Q3H PRN PAIN LEVEL 1 - 3 Oxycodone HCl 10 mg 06/26/18 12:35 Roxicodone - PO Q3H PRN PAIN LEVEL 4 - 6 Oxycodone HCl 15 mg 06/26/18 12:35 Roxicodone - PO Q4H PRN PAIN LEVEL 7 - 10 Oxycodone HCl 10 mg 06/26/18 21:00 Oxycontin - PO BID@0900,2100 JONN Polyethylene Glycol 17 gm 06/24/18 20:26 06/26/18 10:36 Miralax (For Daily Use) - PO 17 grams DAILY PRN Administration CONSTIPATION Senna 2 tab 06/24/18 20:26 Senna - PO HS PRN CONSTIPATION ASSESSMENT/PLAN: Patient is a 57 year old male L4-L5, 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 Nye. His other past medical history includes hypertension, hyperlipidemia, gastritis, BPH, chronic back pain. Back surgery Monitor wound, change dressing per surgery physical therapy pain management, bowel regimen, incentive spirometer Hypertension. controlled. On Norvasc 5mg daily Hyperlipidemia On statin therapy GI Constipation x 4 days despite bowel regimen given dulcolax po and WA, encouraged ambulation may try tap water enema if remains constipated. fen tolerating PO monitor daily electrolytes diet per surgery prophy scds physical therapy Visit type - Emergency Visit Emergency Visit: Yes ED Registration Date: 06/23/18 Care time: The patient presented to the Emergency Department on the above date and was hospitalized for further evaluation of their emergent condition. - New Patient This patient is new to me today: No - Critical Care Critical Care patient: No - Discharge Referral Referred to [facility] No
[2018-06-26] MEDS ORDERED: ATORVASTATIN CA 20 MG TABLET (FP) PO SCH (22:00)
[2018-06-27] MEDS: ACETAMINOPHEN 325 MG TABLET (FP) PO SCH ×3 (00:30→12:13)
[2018-06-27] MEDS: DOCUSATE SODIUM 100 MG CAPSULE (FP) PO PRN (06:02)
[2018-06-27] MEDS ORDERED: BISACODYL 10 MG SUPP.RECT RC ONE (08:56)
[2018-06-27] MEDS ORDERED: BISACODYL 5 MG TABLET.DR (FP) PO ONE (08:56)
[2018-06-27 09:59] LABS: BASO % 0.3 % (0-2.0); EOS % 2.1 % (0-4.5); HEMATOCRIT 46.4 % (35.4-49); HEMOGLOBIN 15.9 GM/dL (11.7-16.9); LYMPH % 26.3 % (8-40); MCH 28.9 pg (25.7-33.7); MCHC 34.2 g/dl (32.0-35.9); MEAN CELL VOLUME 84.7 fl (80-96); MEAN PLT VOLUME 8.9 fl (7.5-11.1); MONO % 6.2 % (3.8-10.2); NEUT % 65.1 % (42.8-82.8); PLATELET COUNT 188 K/MM3 (134-434); RBC 5.48 M/mm3 (4.00-5.60); WHITE BLOOD COUNT 6.2 K/mm3 (4.0-10.0)
[2018-06-27] MEDS ORDERED: amLODIPine BESYLATE 5 MG TABLET (FP) PO SCH (10:00)
[2018-06-27] MEDS: oxyCODONE HCL 10 MG SUSTAINED ACTING TABLET PO SCH (10:07)
[2018-06-27] MEDS: BACITRACIN 15 GM TUBE TOPICAL OINTMENT TP SCH (10:35)
[2018-06-27] MEDS ORDERED: DOCUSATE SODIUM 100 MG CAPSULE (FP) PO SCH (14:00)
[2018-06-27 14:43] VITALS: BP 141/73; PULSE 70; TEMP 98.1
--- NOTE | 2018-06-27 14:51 | DS ---
Physical Exam: SUBJECTIVE: Patient seen and examined. feels well, wants to go home. OBJECTIVE: patient had a solitary fever 100.6 overnight, states he feels well, no shortness of breath, no chills or malaise repeated vitals are stable. WBC stable. chest xray without acute pathology lungs clear to auscultation surgical dressing clean and dry without any signs of drainage will discharge home with PCP follow up with in 3-5 days had a bm overnight, no longer constipated. Vital Signs Period Temp Pulse Resp BP Sys/Stewart Pulse Ox Last 24 Hr 98.1 F-100.6 F 70-87 20-20 103-141/64-92 97-97 PHYSICAL EXAM GENERAL: The patient is awake, alert, and fully oriented, in no acute distress. HEAD: Normal with no signs of trauma. EYES: PERRL, sclera anicteric, conjunctiva clear. ENT: nares patent, oropharynx clear without exudates, moist mucous membranes. NECK: Trachea midline, full range of motion, supple. LUNGS: Breath sounds equal, clear to auscultation bilaterally, no wheezes, no crackles, no accessory muscle use. HEART: Regular rate and rhythm, ABDOMEN: Soft, nontender, nondistended, normoactive bowel sounds, no guarding, EXTREMITIES: 2+ pulses, warm, well-perfused, no edema. NEUROLOGICAL: Normal speech, gait not observed. PSYCH: Normal mood, normal affect. SKIN: surgical dressing dry and intact. LABS Laboratory Results - last 24 hr 06/27/18 06:30 WBC 6.2 RBC 5.48 Hgb 15.9 Hct 46.4 D MCV 84.7 MCH 28.9 D MCHC 34.2 RDW 13.0 Plt Count 188 D MPV 8.9 Absolute Neuts (auto) 4.1 Neutrophils % 65.1 Lymphocytes % 26.3 Monocytes % 6.2 Eosinophils % 2.1 Basophils % 0.3 Nucleated RBC % 0 HOSPITAL COURSE: Date of Admission:06/23/18 Date of Discharge: 06/27/18 Patient is a 57 year old male L4-L5, 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 Nye. His other past medical history includes hypertension, hyperlipidemia, gastritis, BPH, chronic back pain. Back surgery Monitor wound, change dressing per surgery physical therapy pain management, bowel regimen, incentive spirometer patient ambulated with PT and is stable for d/c home Card: Hypertension. controlled. On Norvasc 5mg daily Hyperlipidemia On statin therapy Fever: solitary fever 100.6 overnight. no signs of sepsis. no malaise, feels well. repeat temps stable. chest xray normal stable oxygen saturations, dressing dry and intact. GI Constipation, resolved. disposition: patient to follow up with Dr. Nye and PCP. Minutes to complete discharge: 60 Discharge Summary Reason For Visit: SPINAL STENOSIS, LUMBAR REGION WITHOUT NEUROGENIC Current Active Problems HTN (hypertension) (Acute) Hyperlipidemia (Acute) Prophylactic measure (Acute) S/P lumbar laminectomy (Acute) Condition: Stable - Instructions Diet, Activity, Other Instructions: Dr. David Nye's Discharge Instructions Post Operative Instructions Physical activity Resume your normal everyday activity as tolerated no heavy lifting or exercise until seen by your surgeon. You may walk unlimited amounts of and climb stairs. You may resume driving the car when you feel safe and comfortable behind the wheel. Wound care If you have a bandage, leave it on, and keep dry. Do Not peel them off. If there are tapes present on the skin, they can get wet. Call Dr. Nye office if you have questions regarding the bandages. Dr Nye will do the first dressing change. Diet There are no dietary restrictions. Eat healthy soft diet. Drink 6 to 8 glasses of liquid each day and take colace and miralax daily.. This will assist in keeping your bowels are regular. Pain management You may take Tylenol or oxycodone for pain. Do not take any NSAIDs (motrin, aleve, aspirin, ibuprophen or naproxyn) until cleared by your surgeon. Call Dr. Nye for any of the following: -Severe pain not relieved by medication -Fever of 101 or higher -Excessive bleeding or drainage on dressing Call the office for a post operative appointment in 7 - 10 days. Referrals: David Nye MD [Staff Physician] - Disposition: HOME - Home Medications Comprehensive Discharge Medication List: Ambulatory Orders Amlodipine Besylate 5 mg PO DAILY 06/23/18 Oxycodone HCl [Oxycontin] 40 mg PO DAILY 06/23/18 Pravastatin Sodium [Pravachol -] 40 mg PO DAILY 06/23/18 Docusate Sodium [Colace -] 100 mg PO Q8H PRN capsule 06/27/18 Docusate Sodium [Colace -] 100 mg PO TID capsule 06/27/18 Polyethylene Glycol 3350 [Miralax 119 gm Btl -] 17 gm PO DAILY PRN bottle 06/27 Sennosides [Senna -] 2 tab PO HS PRN tablet 06/27/18 This patient is new to me today: No Emergency Visit: No Critical Care patient: No - Discharge Referral Referred to [facility] No
== END 2018-06-27 15:26 | disposition home or self-care (01) | DRG 304 ==
LOC: JSAMEDAYSX 06:33 → JICU 18:02 → J8W 06-26 12:39
PROVIDERS: ADMIT Orthopaedic Surgery Orthopaedic Surgery of the Spine; ATTEND Nurse Practitioner Family
PROC: 0SG0071 Fusion of Lumbar Vertebral Joint with Autologous Tissue Substitute, Posterior Approach, Posterior Column, Open Approach (ICD-10-PCS; 2018-06-23)
PROC: 0SB20ZZ Excision of Lumbar Vertebral Disc, Open Approach (ICD-10-PCS; 2018-06-23)
PROC: 01NB0ZZ Release Lumbar Nerve, Open Approach (ICD-10-PCS; 2018-06-23)
PROC: 0SG30AJ Fusion of Lumbosacral Joint with Interbody Fusion Device, Posterior Approach, Anterior Column, Open Approach (ICD-10-PCS; 2018-06-23)
PROC: 0SG3071 Fusion of Lumbosacral Joint with Autologous Tissue Substitute, Posterior Approach, Posterior Column, Open Approach (ICD-10-PCS; 2018-06-23)
PROC: 0SB40ZZ Excision of Lumbosacral Disc, Open Approach (ICD-10-PCS; 2018-06-23)
PROC: 07DR0ZZ Extraction of Iliac Bone Marrow, Open Approach (ICD-10-PCS; 2018-06-23)
PROC: 4A11X4G Monitoring of Peripheral Nervous Electrical Activity, Intraoperative, External Approach (ICD-10-PCS; 2018-06-23)
PROC: B01BZZZ Fluoroscopy of Spinal Cord (ICD-10-PCS; 2018-06-23)
PROC: 0SG00AJ Fusion of Lumbar Vertebral Joint with Interbody Fusion Device, Posterior Approach, Anterior Column, Open Approach (ICD-10-PCS; principal; 2018-06-23 08:00)
DX: M48.062 Spinal stenosis, lumbar region with neurogenic claudication (principal); M54.16 Radiculopathy, lumbar region; M53.2X6 Spinal instabilities, lumbar region; M40.46 Postural lordosis, lumbar region; I10 Essential (primary) hypertension; E78.5 Hyperlipidemia, unspecified; N40.0 Benign prostatic hyperplasia without lower urinary tract symptoms; K29.60 Other gastritis without bleeding; K59.09 Other constipation
CPT/HCPCS: 36415; 71045-TC-FY; 76000-TC-FY; 80048; 80053; 85025; 85027; 86850; 86900; 86901; 88304-TC; 94010; 94760; 97116-GP; 97161-GP; J0131; J1644